=== PATIENT | female | born 1930 | race Caucasian/White ===

== ENCOUNTER 2017-07-26 13:09 | Emergency (ER) | payer MEDICARE, OTHER ==
[~2017-07-26] VITALS: Ht 152.4 cm; Wt 66.0 kg
[~2017-07-26 13:09] MED LIST: APIX5TAB PO; ASPI81 PO; ATEN1TAB74 PO; ATOR20TA42 PO; LASI20TA PO; LISI40TA PO; OXYC10TA8 PO; SERT50 PO; WALKER ROLLING
[2017-07-26 13:13] VITALS: BP 166/75; PULSE 61; RESP 16; TEMP 98.2; O2SAT 96
[2017-07-26] MEDS ORDERED: KLOR10TA PO (13:29)
[2017-07-26] MEDS ORDERED: ATEN25TA PO (13:29)
[2017-07-26] MEDS ORDERED: APIX5TAB PO (13:29)
[2017-07-26] MEDS ORDERED: SERT-132 PO (13:29)
[2017-07-26] MEDS ORDERED: FURO20TA PO (13:29)
[2017-07-26] MEDS ORDERED: LISI-515 PO (13:29)
[2017-07-26] MEDS ORDERED: OXYC1CAP PO (13:29)
--- NOTE | 2017-07-26 13:43 | PD ---
HPI Chief Complaint: Injury Time Seen by Provider: 13:30 Travel History International Travel<30 days: No Contact w/Intl Traveler<30days: No Traveled to known affect area: No History of Present Illness HPI 86-year-old female presents to emergency department status post mechanical fall that occurred just prior to arrival. Patient states that she was turning around to move a garbage can and lost her balance. States that she caught herself on the kitchen counter and was able to have a controlled fall to the floor onto her butt. He denies head trauma, LOC, headache. States that currently she does not have neck, back pain, or butt pain. Her left forearm is painful with skin tears. In addition, she has a hematoma over her wrist and third MCP. Patient denies numbness or tingling. She has limited range of motion of her wrist secondary to pain. She has full range of motion of her shoulder and elbow. 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 She uses a walker to ambulate in and around the house. PFSH Past Medical History Hx Anticoagulant Therapy: Yes (XARELTO) Arthritis: Yes Asthma: No Atrial Fibrillation: Yes Blood Disorders: No Anxiety: Yes Depression: Yes Heart Rhythm Problems: Yes (A FIB, MILD AORTIC SCLEROSIS) Cancer: No Cardiovascular Problems: Yes (HTN, CHOL) High Cholesterol: Yes Chest Pain: Yes Congestive Heart Failure: No COPD: No Cerebrovascular Accident: Yes (CVA) Diabetes: No Diminished Hearing: No Endocrine: No Gastrointestinal Disorders: Yes (CONSTIPATION R/T PAIN MEDS) GERD: Yes Genitourinary: No Headaches: No Hiatal Hernia: No Hypertension: Yes Immune Disorder: No Implanted Vascular Access Dvce: Yes Kidney Stones: No Musculoskeletal: Yes (COMPRESSION FRACTURES AT L5 AND L3; GETS EPIDURAL STEROID INJECTIONS) Neurologic: No Psychiatric: No Reproductive: Yes (D&C 1981) Respiratory: No Migraines: Yes (at age 19) Renal Failure: No Seizures: No Sickle Cell Disease: No Sleep Apnea: No Ulcer: No Influenza Vaccination: No ?: Not Menopausal: Yes : 4 Para: 4 Dilation and Curettage (D&C): Yes Past Surgical History Abdominal Surgery: No AICD: No Arteriovenous Shunt: No Body Medical Devices: NERVE STIMULATOR FOR BACK Cardiac Surgery: No Ear Surgery: No Endocrine Surgery: No Eye Surgery: Yes (cataracts removed both eyes) Genitourinary Surgery: Yes (BREAST BIOPSY) Gynecologic Surgery: No Insulin Pump: No Joint Replacement: No Oral Surgery: No Pacemaker: No Thoracic Surgery: No Other Surgery: Yes (see hx) Social History Alcohol Use: No Tobacco Use: No Substance Use: No Allergies-Medications (Allergen,Severity, Reaction): Coded Allergies: ibuprofen (Unverified Adverse Reaction, Severe, STOMACH PROBLEMS, 07/26/17) meperidine (Unverified Adverse Reaction, Severe, UPSET STOMACH, 07/26/17) Uncoded Allergies: ALEVE (Adverse Reaction, Mild, STOMACH PROBLEMS, 03/22/05) Reported Meds & Prescriptions Reported Meds & Active Scripts Active Reported Sertraline (Sertraline HCl) 50 Mg Tab 50 Mg PO DAILY Klor-Con 10 (Potassium Chloride) 10 Meq Tab 10 Meq PO DAILY Furosemide 20 Mg Tab 20 Mg PO DAILY Oxycodone (Oxycodone HCl) 5 Mg Cap 5 Mg PO Q6H PRN Lisinopril 20 Mg Tab 20 Mg PO DAILY Atenolol 25 Mg Tab 25 Mg PO BID Eliquis (Apixaban) 5 Mg Tab 5 Mg PO DAILY Review of Systems Except as stated in HPI: all other systems reviewed are Neg Physical Exam Narrative GENERAL: Well-developed well-nourished in no apparent distress SKIN: Focused skin assessment warm/dry. Left forearm- multiple skin tears to the dorsal aspect of forearm HEAD: Atraumatic. Normocephalic. EYES: Pupils equal and round. No scleral icterus. No injection or drainage. EOMI ENT: No nasal bleeding or discharge. Mucous membranes pink and moist. NECK: Trachea midline. No JVD. No midline tenderness CARDIOVASCULAR: Regular rate and rhythm. No murmur appreciated. RESPIRATORY: No accessory muscle use. Clear to auscultation. Breath sounds equal bilaterally. MUSCULOSKELETAL: No obvious deformities. No clubbing. No cyanosis. No edema. NEUROLOGICAL: Awake and alert. No obvious cranial nerve deficits. Motor grossly within normal limits. Normal speech. PSYCHIATRIC: Appropriate mood and affect; insight and judgment normal. Data Data Last Documented VS Vital Signs Date Time Temp Pulse Resp B/P (MAP) Pulse Ox O2 Delivery O2 Flow Rate FiO2 07/26/17 13:13 98.2 61 16 166/75 (105) 96 Orders Orders Forearm (2vws) (07/26/17 ) Hand, Complete ([id number]) (07/26/17 ) Wound Care (07/26/17 13:49) Tetanus/Diphtheria Tox Adult (Tetanus/Di (07/26/17 14:45) Ed Discharge Order (07/26/17 14:48) [facility] Medical Decision Making Medical Screen Exam Complete: Yes Emergency Medical Condition: Yes Differential Diagnosis Left forearm contusion versus fracture versus sprain Left wrist contusion versus fracture versus sprain Left third MCP contusion versus fracture versus sprain Narrative Course 86-year-old female presents to emergency department status post mechanical fall that occurred just prior to arrival. Patient states that she was turning around to move a garbage can and lost her balance. States that she caught herself on the kitchen counter and was able to have a controlled fall to the floor onto her butt. He denies head trauma, LOC, headache. States that currently she does not have neck, back pain, or butt pain. Her left forearm is painful with skin tears. In addition, she has a hematoma over her wrist and third MCP. Patient denies numbness or tingling. She has limited range of motion of her wrist secondary to pain. She has full range of motion of her shoulder and elbow. 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 She uses a walker to ambulate in and around the house. The patient denies head trauma, LOC, or dizziness. She does take Eliquis daily. Vital signs stable Wound care performed using topical lidocaine and debridement of the skin tears. Left the skin intact for biologic dressing. Applied topical antibiotic ointment. Advised family wound care. Advised to keep the left arm elevated to reduce swelling and pain. Patient advised follow-up with primary care physician within 2-3 days. Always use a walker for ambulation. Patient appears to have a good support system at home. If symptoms persist or worsen return to the emergency department Diagnosis Primary Impression: Contusion, hand Qualified Codes: S60.222A - Contusion of left hand, initial encounter Additional Impressions: Wrist contusion Qualified Codes: S60.212A - Contusion of left wrist, initial encounter Skin tear of forearm without complication Qualified Codes: S51.812A - Laceration without foreign body of left forearm, initial encounter Referrals: Primary Care Physician Additional Instructions: Follow-up with primary care physician within 2-3 days. Keep the left arm elevated to reduce swelling. Use Tylenol for pain relief. You may change dressings in 24 hours. Change dressings at least every 24 hours until healed. Disposition: 01 DISCHARGE HOME Condition: Stable Praveena Dos Santos Jul 26, 2017 13:43
--- NOTE | 2017-07-26 14:27 | RADRPT ---
EXAM DATE/TIME: 07/26/2017 13:40 [facility] COMPARISON: No previous studies available for comparison. INDICATIONS : Left forearm pain post fall MEDICAL HISTORY : None. SURGICAL HISTORY : None. ENCOUNTER: Initial ACUITY: 1 day PAIN SCORE: 4/10 LOCATION: Left lateral forearm FINDINGS: Two view examination of the left forearm demonstrates significant soft tissue swelling in the distal forearm. Underlying bony structures are intact. There is no evidence of fracture or dislocation. CONCLUSION: Soft tissue swelling without evidence of acute fracture or dislocation. Adolfo Rhodes MD on July 26, 2017 at 14:25 Board Certified Radiologist. This report was verified electronically.
--- NOTE | 2017-07-26 14:29 | RADRPT ---
EXAM DATE/TIME: 07/26/2017 13:40 [facility] COMPARISON: No previous studies available for comparison. INDICATIONS : Left hand pain post fall. MEDICAL HISTORY : None. SURGICAL HISTORY : None. ENCOUNTER: Initial ACUITY: 1 day PAIN SCORE: 5/10 LOCATION: Left lateral hand FINDINGS: Three view examination of the left hand demonstrates significant arthropathy of the interphalangeal j oints. There is joint space narrowing, subchondral sclerosis and mild marginal spurring. Bony structures are otherwise intact. There is soft tissue swelling extending from the distal forearm and the wrist. There is no evidence of acute fracture or dislocation. CONCLUSION: 1. Degenerative arthropathy characteristic of osteoarthritis. 2. Distal left forearm and wrist soft tissue swelling. 3. No evidence of fracture or dislocation. Adolfo Rhodes MD on July 26, 2017 at 14:26 Board Certified Radiologist. This report was verified electronically.
[2017-07-26] MEDS ORDERED: TETANUS/DIPHTHERIA TOXOID ADULT 0.5 ML VIAL IM ONE (14:45)
== END 2017-07-26 15:01 | disposition home or self-care (01) ==
LOC: PHEFT 13:09
DX: S60.222A Contusion of left hand, initial encounter (principal); S60.212A Contusion of left wrist, initial encounter; S51.812A Laceration without foreign body of left forearm, initial encounter; I48.91 Unspecified atrial fibrillation; I10 Essential (primary) hypertension; W01.0XXA Fall on same level from slipping, tripping and stumbling without subsequent striking against object, initial encounter; Y93.E9 Activity, other interior property and clothing maintenance; Y92.000 Kitchen of unspecified non-institutional (private) residence as the place of occurrence of the external cause; Z79.01 Long term (current) use of anticoagulants; Z23 Encounter for immunization
CPT/HCPCS: 73090; 73130; 90471; 90714